=== PATIENT | female | born 1935 | race Caucasian/White ===

== ENCOUNTER 2022-08-08 12:00 | Inpatient (IN) | payer MEDICARE, OTHER ==
[~2022-08-08] VITALS: Ht 154.9 cm; Wt 72.6 kg
[2022-08-08] MEDS ORDERED: SODIUM CHLORIDE 0.9% 1000ML BAG (SEPSIS BOLUS) IV ONE (12:30)
[2022-08-08 14:01] LABS: BASOPHILS % 0.3 % (0.0-2.0); EOSINOPHILS % 0.1 % (0.0-5.0); HEMATOCRIT. 29.7 % (36.0-48.0); LYMPHOCYTES % 11.8 % (20.0-50.0); MEAN CORPUSCULAR HEMOGLOBIN 33.7 pg (28.0-32.0); MEAN CORPUSCULAR VOLUME 100.5 fL (81.0-99.0); MEAN PLATELET VOLUME 5.8 fl (7.4-10.4); MONOCYTES % 7.1 % (2.0-8.0); NEUTROPHILS % 80.7 % (40.0-76.0); PLATELET 207 x1000/uL (130-400); RED BLOOD CELL COUNT 2.95 mill/uL (4.2-5.4); RED CELL DISTRIBUTION WIDTH 12.9 % (11.6-14.6)
[2022-08-08 14:10] LABS: CHLORIDE 100 mEq/L (98-107)
[2022-08-08] MEDS ORDERED: VANCOMYCIN 1G PREMIX 200 ML IV ONE (15:15)
[2022-08-08] MEDS ORDERED: PIPERACILLIN/TAZ 3.375G PREMIX 50 ML IV ONE (15:15)
[2022-08-08 15:48] LABS: CLARITY URINE CLEAR (CLEAR); COLOR URINE YELLOW (YELLOW); KETONES URINE NEGATIVE (NEGATIVE); LEUKOCYTE ESTERASE URINE NEGATIVE (NEGATIVE); NITRITE URINE NEGATIVE (NEGATIVE); OCCULT BLOOD URINE NEGATIVE (NEGATIVE); PH URINE 6.5 (4.5-8.0); PROTEIN URINE NEGATIVE (NEGATIVE); SPECIFIC GRAVITY URINE 1.014 (1.005-1.030)
[2022-08-08] MEDS ORDERED: IOHEXOL-350 100 ML BOTTLE ONE (18:29)
[2022-08-08] MEDS ORDERED: GUAIFENESIN 200MG/10ML SUGAR FREE UDC PO PRN (18:30)
[2022-08-08] MEDS ORDERED: MAGNESIUM/ALUMINUM HYDROXIDE/SIMETHICONE 30ML UDC PO PRN (18:30)
[2022-08-08] MEDS ORDERED: ONDANSETRON HCL 4MG/2ML INJ IV PRN (18:30)
[2022-08-08] MEDS ORDERED: ACETAMINOPHEN 325MG TABLET PO PRN ×2 (18:30)
[2022-08-08] MEDS ORDERED: DEXTROSE 50% WATER 50ML SYRINGE IV PRN (18:30)
[2022-08-08] MEDS ORDERED: IPRATROPIUM/ALBUTEROL 0.5-3(2.5)MG/3ML NEB HHN PRN (18:30)
[2022-08-08] MEDS ORDERED: CLONIDINE 0.1MG TABLET PO PRN (18:30)
[2022-08-08] MEDS ORDERED: DOCUSATE SODIUM 100MG CAPSULE PO PRN (18:30)
[2022-08-08] MEDS ORDERED: METOPROLOL TARTRATE 5MG/5ML VIAL IV NR (19:00)
[2022-08-08 19:41] LABS: ETHANOL BLOOD < 10 mg/dL; PHOSPHORUS 3.6 mg/dL (2.5-4.9); TOTAL IRON BINDING CAPACITY 296 ug/dL (250-450)
[2022-08-08 20:11] LABS: D-DIMER 0.42 mg/L FEU (<0.50); INR 1.1; PARTIAL THROMBOPLASTIN TIME 28.2 sec (23.4-31.0)
[2022-08-08 20:13] LABS: FOLIC ACID (FOLATE) SERUM >20 ng/mL ng/mL (>5.38); VITAMIN B12 SERUM 203 pg/mL (211-911)
[2022-08-08] MEDS: INSULIN LISPRO 100 UNITS/ML SUBCUT SCH ×2 (20:37→21:00)
[2022-08-08] MEDS: BLOOD SUGAR DIAGNOSTIC STRIP TEST SCH (20:38)
[2022-08-08] MEDS ORDERED: LEVOFLOXACIN 500MG PREMIX 100 ML IV NR (21:00)
[2022-08-08] MEDS: SODIUM CHLORIDE 0.9% 1,000 ML IV SCH (22:41)
[2022-08-08] MEDS: ATORVASTATIN CALCIUM 10MG TABLET PO SCH (22:42)
[2022-08-08] MEDS: APIXABAN 5 MG TABLET PO SCH (22:42)
[2022-08-08] MEDS: FAMOTIDINE 20MG TABLET PO SCH (22:42)
[2022-08-09 00:50] VITALS: BP 114/48
[2022-08-09 00:54] VITALS: BP 114/48
[2022-08-09] MEDS ORDERED: APIX5TAB MT (03:16)
[2022-08-09] MEDS ORDERED: ATOR10TA MT (03:16)
[2022-08-09] MEDS ORDERED: METF-415 MT (03:16)
[2022-08-09] MEDS ORDERED: DOCU-138 MT (03:16)
[2022-08-09] MEDS ORDERED: MAGN400C MT (03:16)
[2022-08-09] MEDS ORDERED: FURO-152 MT (03:16)
[2022-08-09 03:21] LABS: CREATINE KINASE MB FRACTION 2.9 ng/mL (0.5-3.6)
[2022-08-09 04:00] VITALS: BP 113/60
[2022-08-09 05:43] LABS: BASOPHILS % 0.4 % (0.0-2.0); EOSINOPHILS % 0.3 % (0.0-5.0); HEMATOCRIT. 29.8 % (36.0-48.0); HEMOGLOBIN. 10.1 g/dL (12.0-16.0); LYMPHOCYTES % 18.4 % (20.0-50.0); MEAN CORPUSCULAR HEMOGLOBIN 33.7 pg (28.0-32.0); MEAN CORPUSCULAR VOLUME 99.9 fL (81.0-99.0); MEAN PLATELET VOLUME 6.3 fl (7.4-10.4); MONOCYTES % 7.9 % (2.0-8.0); PLATELET 186 x1000/uL (130-400); RED BLOOD CELL COUNT 2.98 mill/uL (4.2-5.4)
[2022-08-09 06:01] LABS: CHLORIDE 102 mEq/L (98-107)
[2022-08-09 06:18] LABS: CREATINE KINASE MB FRACTION 2.9 ng/mL (0.5-3.6)
[2022-08-09 06:19] LABS: HDL CHOLESTEROL 72 mg/dL (40-59); LDL CHOLESTEROL 39 mg/dL (5-100); PHOSPHORUS 3.2 mg/dL (2.5-4.9); T4 FREE 1.27 ng/dL (0.76-1.46)
[2022-08-09] MEDS: BLOOD SUGAR DIAGNOSTIC STRIP TEST SCH ×4 (06:40→20:55)
[2022-08-09] MEDS: INSULIN LISPRO 100 UNITS/ML SUBCUT SCH ×4 (07:10→20:55)
[2022-08-09 08:00] VITALS: BP 122/54
[2022-08-09] MEDS ORDERED: FUROSEMIDE 20MG TABLET PO SCH (09:00)
[2022-08-09 09:08] LABS: *AMPHETAMINES SCREEN URINE NEGATIVE (NEGATIVE); *BARBITURATES SCREEN URINE NEGATIVE (NEGATIVE); *BENZODIAZEPINES SCREEN URINE NEGATIVE (NEGATIVE); *COCAINE SCREEN URINE NEGATIVE (NEGATIVE); CANNABINOID URINE SCREEN NEGATIVE (NEGATIVE); METHADONE URINE SCREEN NEGATIVE (NEGATIVE); OPIATES URINE SCREEN NEGATIVE (NEGATIVE); PHENCYCLIDINE URINE SCREEN NEGATIVE (NEGATIVE)
[2022-08-09] MEDS: FERROUS SULFATE 325MG TABLET PO SCH (09:32)
[2022-08-09] MEDS: APIXABAN 5 MG TABLET PO SCH ×2 (09:32→17:43)
[2022-08-09] MEDS: LOSARTAN POTASSIUM 100 MG TABLET PO SCH (09:32)
[2022-08-09] MEDS: HYDROCODONE/ACETAMINOPHEN 5/325MG TABLET PO PRN (09:32)
[2022-08-09] MEDS: SODIUM CHLORIDE 0.9% 1,000 ML IV SCH (09:55)
[2022-08-09] MEDS ORDERED: MAGNESIUM 2 G PREMIX 50 ML IV SCH (10:15)
[2022-08-09] MEDS: CYANOCOBALAMIN 1000MCG/ML VIAL IM SCH (12:12)
[2022-08-09 12:54] LABS: CREATINE KINASE MB FRACTION 2.7 ng/mL (0.5-3.6)
[2022-08-09] MEDS ORDERED: NALOXONE HCL 0.4MG/ML VIAL IV PRN (14:45)
[2022-08-09] MEDS ORDERED: ALBUTEROL (0.083%) 2.5MG/3ML NEB HHN PRN (14:45)
[2022-08-09] MEDS ORDERED: IPRATROPIUM BROMIDE (0.02%) 0.5MG/2.5ML NEB HHN PRN (14:45)
[2022-08-09 16:00] VITALS: BP 118/59
[2022-08-09 20:00] VITALS: BP 117/54
[2022-08-09] MEDS ORDERED: LEVOFLOXACIN 250MG PREMIX 50 ML IV SCH (21:00)
[2022-08-09] MEDS: ATORVASTATIN CALCIUM 10MG TABLET PO SCH (21:18)
[2022-08-09] MEDS: FAMOTIDINE 20MG TABLET PO SCH (21:18)
[2022-08-10] VITALS: BP 127/51
[2022-08-10 04:00] VITALS: BP 134/80
[2022-08-10] MEDS: BLOOD SUGAR DIAGNOSTIC STRIP TEST SCH ×4 (05:41→21:00)
[2022-08-10] MEDS: INSULIN LISPRO 100 UNITS/ML SUBCUT SCH ×4 (05:41→21:00)
[2022-08-10 07:09] LABS: HEMATOCRIT 30.2 % (36.0-48.0); HEMOGLOBIN 10.2 g/dL (12.0-16.0); MEAN CORPUSCULAR HEMOGLOBIN 33.7 pg (28.0-32.0); MEAN CORPUSCULAR VOLUME 100.1 fL (81.0-99.0); PLATELET 182 x1000/uL (130-400); RED BLOOD CELL COUNT 3.01 mill/uL (4.2-5.4); RED CELL DISTRIBUTION WIDTH 12.9 % (11.6-14.6)
[2022-08-10 08:37] LABS: CHLORIDE 103 mEq/L (98-107)
[2022-08-10 08:43] LABS: PHOSPHORUS 2.7 mg/dL (2.5-4.9)
[2022-08-10] MEDS: FERROUS SULFATE 325MG TABLET PO SCH (09:45)
[2022-08-10] MEDS: CYANOCOBALAMIN 1000MCG/ML VIAL IM SCH (09:45)
[2022-08-10] MEDS: LOSARTAN POTASSIUM 100 MG TABLET PO SCH (09:45)
[2022-08-10] MEDS: APIXABAN 5 MG TABLET PO SCH ×2 (09:45→17:00)
[2022-08-10 12:00] VITALS: BP 117/62
[2022-08-10] MEDS ORDERED: APIX5TAB PO (13:24)
[2022-08-10] MEDS ORDERED: ATOR10TA PO (13:24)
[2022-08-10] MEDS ORDERED: CYAN-50 PO (14:43)
[2022-08-10 16:00] VITALS: BP 142/70
[2022-08-10 20:00] VITALS: BP 116/56
[2022-08-11] VITALS: BP 134/75
[2022-08-11] MEDS: FAMOTIDINE 20MG TABLET PO SCH (00:18)
[2022-08-11] MEDS: ATORVASTATIN CALCIUM 10MG TABLET PO SCH (00:18)
[2022-08-11] MEDS: HYDROCODONE/ACETAMINOPHEN 5/325MG TABLET PO PRN (00:19)
[2022-08-11 04:00] VITALS: BP 120/64
[2022-08-11] MEDS: BLOOD SUGAR DIAGNOSTIC STRIP TEST SCH (06:12)
[2022-08-11] MEDS: INSULIN LISPRO 100 UNITS/ML SUBCUT SCH (06:27)
[2022-08-11] MEDS ORDERED: CYANOCOBALAMIN 1000MCG TABLET PO SCH (07:10)
[2022-08-11 08:00] VITALS: BP 140/91
[2022-08-11] MEDS: APIXABAN 5 MG TABLET PO SCH (08:41)
[2022-08-11] MEDS: LOSARTAN POTASSIUM 100 MG TABLET PO SCH (08:41)
[2022-08-11] MEDS: FERROUS SULFATE 325MG TABLET PO SCH (08:41)
[2022-08-11] MEDS: CYANOCOBALAMIN 1000MCG/ML VIAL IM SCH (08:42)
[2022-08-11 08:49] VITALS: BP 140/91
[2022-08-11 08:57] VITALS: BP 140/91
== END 2022-08-11 10:35 | disposition home health service (06) | DRG 194 ==
LOC: ER 12:00 → 7EST 17:05
PROVIDERS: ADMIT Internal Medicine; ATTEND Internal Medicine
DX: I11.0 Hypertensive heart disease with heart failure (principal); R65.11 Systemic inflammatory response syndrome (SIRS) of non-infectious origin with acute organ dysfunction; E44.1 Mild protein-calorie malnutrition; E87.1 Hypo-osmolality and hyponatremia; I95.9 Hypotension, unspecified; E86.0 Dehydration; I27.20 Pulmonary hypertension, unspecified; Z79.01 Long term (current) use of anticoagulants; E11.9 Type 2 diabetes mellitus without complications; D64.9 Anemia, unspecified; I48.0 Paroxysmal atrial fibrillation; I50.33 Acute on chronic diastolic (congestive) heart failure; E53.8 Deficiency of other specified B group vitamins; E78.5 Hyperlipidemia, unspecified; Z68.30 Body mass index [BMI] 30.0-30.9, adult; M19.90 Unspecified osteoarthritis, unspecified site; I25.10 Atherosclerotic heart disease of native coronary artery without angina pectoris; R79.89 Other specified abnormal findings of blood chemistry; I10 Essential (primary) hypertension; Z96.651 Presence of right artificial knee joint; Z96.611 Presence of right artificial shoulder joint; Z82.49 Family history of ischemic heart disease and other diseases of the circulatory system; Z79.899 Other long term (current) drug therapy; Z79.84 Long term (current) use of oral hypoglycemic drugs; Z88.0 Allergy status to penicillin
CPT/HCPCS: 36415; 71045; 71270; 80048; 80053; 80061; 80305; 80320; 81003; 82306; 82550; 82553; 82607; 82746; 82962; 83036; 83540; 83550; 83605; 83735; 83880; 84100; 84145; 84439; 84443; 84481; 84484; 85025; 85027; 85379; 93005; 93306; 93880; 93970; 94640; 97162; 99285; J1815; J1956; J2543; J3370; J3420; J3475; J3490; J7030; Q9967; G0480